=== PATIENT | female | born 1935 | race Caucasian/White ===

== ENCOUNTER → 2017-03-04 | Outpatient (CLI) | payer MEDICARE, BC ==
[2014-12-23 15:00] VITALS: BP 110/52
[~2017-03-04] MED LIST: ACET-1574 PO; ACET-704 PO; AMLO5TAB2 PO; CALC-244 PO; CALC300T42 PO; CARV6.252 PO; DIAZ5TAB4 PO; DOCU-109 PO; DOCU100C28 PO; ERGO500027 PO; ESTR42.53 VG; FLUO20CA8 PO; FLUO20TA11 PO; HYDR-2758 PO; LEVO250T25 PO; LOPE2CAP PO; METH750T2 PO; NITR50CA11 PO; ONDA4TAB12 PO; OXYB5TAB33 PO; TRIM100T13 PO; ZOLP10TA4 PO; ZONI100C PO
--- NOTE | 2017-03-04 12:59 | EKG ---
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
[2017-03-04 13:04] LABS: BASO % 1 % (0-3); EOS % 2 % (0-3); HEMATOCRIT 34.4 % (36.0-47.0); HEMOGLOBIN 11.1 g/dL (12.0-15.5); LYMPH # 1.7 x10^3/uL (1.0-4.8); LYMPH % 28 % (24-48); MEAN CORPUSCULAR HEMOGLOBIN 27 pg (25-35); MEAN CORPUSCULAR HGB CONC 32 g/dL (31-37); MEAN CORPUSCULAR VOLUME 82 fL (79-100); MONO % 7 % (0-9); NEUT % 64 % (31-73); PLATELET COUNT 225 x10^3/uL (140-400); RED BLOOD COUNT 4.19 x10^6/uL (3.50-5.40); RED CELL DISTRIBUTION WIDTH 15.4 % (11.5-14.5); WHITE BLOOD COUNT 6.3 x10^3/uL (4.0-11.0)
[2017-03-04 13:09] LABS: CALCIUM 8.9 mg/dL (8.5-10.1); CREATININE 1.3 mg/dL (0.6-1.0); GFR 39.5; POTASSIUM 4.6 mmol/L (3.5-5.1)
[2017-03-04 13:10] LABS: BILIRUBIN,URINE NEGATIVE (NEG); GLUCOSE,URINE NEGATIVE (NEG); NITRITE,URINE NEGATIVE (NEG); PH,URINE 6.5; PROTEIN,URINE NEGATIVE (NEG-TRACE)
[2017-03-04 13:14] LABS: INR 1.2 (0.8-1.1)
[2017-03-04 13:17] LABS: BACTERIA,URINE 0 /HPF (0-FEW); RBC,URINE 0 /HPF (0-2); SQUAMOUS EPITHELIAL CELL,UR MOD /LPF; WBC,URINE OCC /HPF (0-4)
--- NOTE | 2017-03-04 14:18 | RAD ---
2 views of the Chest 03/04/2017 1:46 PM Indication: PRE OP TOTAL HIP ARTHROPLASTY Comparison: Chest radiograph December 20, 2014 Findings: No new focal consolidation or infiltrate is seen. Mild left basilar scarring similar to prior exams. Heart size is top normal. Aortic calcification is noted. An acute osseous change is not seen. Irregularity of multiple right-sided ribs suggesting prior bony injury noted. Impression: No evidence of acute cardiopulmonary process or acute change from prior study.
== END | disposition home or self-care (01) ==
LOC: SURGPAT 10:05
PROVIDERS: ATTEND Orthopaedic Surgery
DX: Z01.818 Encounter for other preprocedural examination (principal)
CPT/HCPCS: 36415; 71020; 80048; 81001; 85027; 85610; 85651; 85730; 87641; 93005

== ENCOUNTER → 2017-05-03 | Outpatient (CLI) | payer MEDICARE, BC ==
[2017-03-15 11:00] VITALS: BP 105/52
[2017-05-03 13:03] LABS: BASO % 1 % (0-3); EOS % 2 % (0-3); HEMATOCRIT 32.2 % (36.0-47.0); HEMOGLOBIN 10.6 g/dL (12.0-15.5); LYMPH # 1.4 x10^3/uL (1.0-4.8); LYMPH % 22 % (24-48); MEAN CORPUSCULAR HEMOGLOBIN 27 pg (25-35); MEAN CORPUSCULAR HGB CONC 33 g/dL (31-37); MEAN CORPUSCULAR VOLUME 83 fL (79-100); MONO % 8 % (0-9); NEUT % 68 % (31-73); PLATELET COUNT 249 x10^3/uL (140-400); RED BLOOD COUNT 3.89 x10^6/uL (3.50-5.40); RED CELL DISTRIBUTION WIDTH 17.2 % (11.5-14.5); WHITE BLOOD COUNT 6.2 x10^3/uL (4.0-11.0)
== END | disposition home or self-care (01) ==
LOC: SPEC 12:14
PROVIDERS: ATTEND Family Medicine
DX: M25.561 Pain in right knee (principal); Z91.81 History of falling
CPT/HCPCS: 36415; 85025; 85651

== ENCOUNTER → 2017-05-03 | Outpatient (CLI) | payer MEDICARE, BC ==
[2017-03-15 11:00] VITALS: BP 105/52
[~2017-05-03] MED LIST changes: +LIDOCAINE 1% / SOD BICARB 8.4% 20 ML VIAL. IJ ONE
[2017-05-03 10:39] LABS: BF CLARITY CLOUDY; BF COLOR RED
--- NOTE | 2017-05-03 10:48 | RAD ---
Fluoroscopically guided right hip joint aspiration, 05/03/2017: History: Possible infection A right hip prosthesis is in place. Under local anesthesia, aseptic conditions and fluoroscopic guidance an 18-gauge needle was passed into the hip joint along the lateral margin of the neck of the femoral component of the prosthesis. Red serous appearing joint fluid was encountered. A total of approximately 20 cc of fluid was aspirated with a sample sent to the lab for appropriate studies. The needle was then removed and hemostasis obtained. 1.1 minutes of fluoroscopy time was utilized. A single fluoroscopic spot image was recorded. The patient tolerated the procedure well and left the department in good condition.
== END | disposition home or self-care (01) ==
LOC: RAD 06:55
PROVIDERS: ATTEND Orthopaedic Surgery
DX: M25.451 Effusion, right hip (principal)
CPT/HCPCS: 20605; 77002; 87071; 87075; 87205; 89050

== ENCOUNTER 2017-05-21 12:06 | Inpatient (IN) | payer MEDICARE, BC ==
[~2017-05-21] VITALS: Ht 152.4 cm; Wt 69.6 kg
[2017-05-21] VITALS (11 sets, daily range): BP systolic 81–99; BP diastolic 38–57
[~2017-05-21 12:06] MED LIST changes: +ACETAMINOPHEN 500 MG TABLET PO PRN; +CALC300T5 PO; +CELE200C PO; +CELECOXIB 200 MG CAPSULE. PO PRN; +FERR-26 PO; +HYDR-2766 PO; +HYDROmorphone 2 MG/ML VIAL IV PRN; +IV RINGERS,LACTATED 1000ML 1,000 ML IV SCH; -LIDOCAINE 1% / SOD BICARB 8.4% 20 ML VIAL. IJ ONE; +LIDOCAINE 1% PF 2 ML VIAL. ID PRN; +MORPHINE SULFATE 4 MG/ML DISP.SYRIN. IV PRN; +MORPHINE SULFATE 5 MG, KETOROLAC 30 MG, ROPIVacaine 0.5% PF 60 ML, EPINEPHrine 0.5 MG i... INT ART ONE; +MULT-503 PO; +ONDANSETRON PF 4 MG/2 ML VIAL. IV PRN; +PROCHLORPERAZINE 10 MG/2 ML VIAL. IV PRN; +RANI150T6 PO; +SENN1TAB21 PO; +TRAM50TA PO; +WARF-78 PO; +ZOLP5TAB PO
[2017-05-21] MEDS ORDERED: fentaNYL PF VIAL 250 MCG/5 ML VIAL ONE (13:27)
[2017-05-21] MEDS ORDERED: VECURONIUM BOLUS 10 MG VIAL. IV ONE (13:28)
[2017-05-21] MEDS ORDERED: DEXAMETHASONE SOD PHOS 20 MG/5 ML VIAL. ONE (13:37)
[2017-05-21] MEDS ORDERED: PROPOFOL 20 ML IV ONE (13:37)
[2017-05-21] MEDS ORDERED: LIDOCAINE 2% PF Vial for OR 5 ML VIAL. ONE (13:37)
[2017-05-21 13:38] LABS: INR 1.1 (0.8-1.1); PROTHROMBIN TIME PATIENT 13.7 SEC (11.7-14.0)
[2017-05-21] MEDS ORDERED: ONDANSETRON PF 4 MG/2 ML VIAL. ONE (13:38)
[2017-05-21] MEDS ORDERED: SEVOFLURANE > 120 MINUTES. IH ONE (13:38)
[2017-05-21] MEDS ORDERED: PHENYLEPHRINE in 0.9% NACL PF 1 MG/10 ML DISP.SYRIN. IV ONE ×2 (14:36→15:24)
[2017-05-21] MEDS ORDERED: GLYCOPYRROLATE 1 MG/5 ML VIAL. ONE (15:01)
[2017-05-21] MEDS ORDERED: NEOSTIGMINE METHYLSULFATE 5 MG/5 ML SYRINGE. ONE (15:02)
[2017-05-21] MEDS ORDERED: MORPHINE SULFATE 2 MG/ML DISP.SYRIN. IV PRN (16:15)
[2017-05-21] MEDS ORDERED: METHOCARBAMOL 750 MG TABLET PO PRN (16:15)
[2017-05-21] MEDS ORDERED: MORPHINE SULFATE 4 MG/ML DISP.SYRIN. IV PRN (16:15)
[2017-05-21] MEDS ORDERED: HYDROcodone/APAP 10/325 1 TAB TABLET PO PRN (16:15)
[2017-05-21] MEDS ORDERED: fentaNYL PF VIAL 100 MCG/2 ML VIAL IV PRN ×3 (16:15)
[2017-05-21] MEDS ORDERED: CALCIUM CARBONATE 500 MG TAB.CHEW PO PRN (16:15)
[2017-05-21] MEDS ORDERED: diphenhydrAMINE 50 MG/ML VIAL IV PRN (16:15)
[2017-05-21] MEDS ORDERED: ACETAMINOPHEN 325 MG TABLET. PO PRN (16:15)
[2017-05-21] MEDS ORDERED: HYDROcodone/APAP 7.5/325MG 1 TAB TABLET PO PRN (16:15)
[2017-05-21] MEDS ORDERED: PROCHLORPERAZINE 10 MG/2 ML VIAL. IV PRN (16:15)
[2017-05-21] MEDS ORDERED: traMADol 50 MG TABLET PO PRN ×3 (16:15)
[2017-05-21] MEDS ORDERED: LOPERAMIDE 2 MG CAPSULE PO PRN (16:15)
[2017-05-21] MEDS ORDERED: oxyCODONE/APAP 5/325 1 TAB TABLET PO PRN (16:15)
[2017-05-21] MEDS ORDERED: 0.9 % SODIUM CHLORIDE 10 ML DISP.SYRIN. IV PRN (16:15)
[2017-05-21] MEDS ORDERED: DEXTROSE 50% 25 GM / 50ML DISP.SYRIN. IV PRN (16:15)
[2017-05-21] MEDS ORDERED: ZOLPIDEM 5 MG TABLET. PO PRN ×2 (16:15)
[2017-05-21] MEDS: fentaNYL PF VIAL 100 MCG/2 ML VIAL IV PRN ×2 (16:25→16:37)
--- NOTE | 2017-05-21 17:10 | RAD ---
EXAM: Pelvis and right hip, 2 views. HISTORY: Arthroplasty. COMPARISON: 03/12/2017. FINDINGS: A frontal view of the pelvis and frontal view of the right hip are obtained. There is a right hip arthroplasty in expected position. There is a healed or healing proximal femoral fracture. There is surrounding soft tissue gas and a cervical drain due to recent surgery. There are laminectomy changes at the lumbosacral junction. IMPRESSION: Right hip arthroplasty in expected position.
[2017-05-21] MEDS ORDERED: WARFARIN 7.5 MG TABLET. PO ONE (19:00)
--- NOTE | 2017-05-21 20:44 | PDOC4 ---
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 endotracheal Estimated blood loss: 350 mL Complications: None Operative indications: Patient was scheduled for a previous acetabular revision for a painful total hip and on performance of her previous procedure was noted to have concern for infection underwent explantation and antibiotic spacer as well as a course of antibiotics and underwent negative aspirate preoperatively. I had gone over with her the rationale of reimplantation the higher risk of infection due to the previous infection she had experienced and the typical risks of a total hip arthroplasty including leg length discrepancy continued pain a mature wear or loosening instability nerve or blood vessel damage medical or other anesthetic competitions among others she verbalized understanding to these concerns and wants to proceed with surgical evaluation and treatment having given informed consent Operative text: Patient was identified procedure verified patient placed in the supine position on the operating table. After adequate amounts of general endotracheal anesthesia were administered she was placed decubitus position right side up using the Stulberg hip positioner and all bony prominences were well-padded and the right hip was prepped and draped in standard sterile fashion after timeout was performed patient procedure identified and verified. A curvilinear incision was then made over the previous incisional area dissection carried out down to the iliotibial band and gluteal fascia which were split in line with their fibers Charnley retractor was placed in the limited portion of the remaining hip capsule was divided in a T fashion. The antibiotic spacer head was split to allow removal and exposure of the spacer femoral stem. Osteotomes were used to remove the surrounding tissue constraining the stem and the stem was removed surrounding fibrous tissue was removed thoroughly with a back gouging curet and thorough irrigation carried out normal saline solution scar tissue was likewise excised from periphery of the acetabulum and successive size reaming was carried up to a size 59 where good bleeding bone was obtained and a size 60 hemispherical cluster hole cup was placed in proper version fixed with a single screw superiorly and an elevated 20 rim 40 mm anterior diameter liner was with elevated rim was placed posterior superior. Femur was then broached up to a size 10 with the anthology broaches from [employer] and trial fit with a standard offset +0 mm which retained her motion and duplicated leg length and offset. Trial femoral stem was then removed thorough irrigation carried out normal saline solution and an critical access hospitalology size 10 porous coated stem was placed in proper version a 40 mm cobalt chrome head with +0 mm sleeve was reduced and again found to have excellent stability with about 50 internal rotation at 90 hip flexion full motion in extension noted. Hip capsule was repaired external rotators were not repairable fascia was closed with Ethibond and #1 PDS strata fix suture subcutaneous closure in a layered fashion with buried Vicryl suture subcuticular closure with 3-0 Monocryl strata fix and a troy drain was placed. Patient was extubated transferred to postop holding in stable condition having tolerated procedure well. Ashly santillan was present for the positioning prepping draping and assisted with retraction and skin closure BLAYNE ARCEO MD May 21, 2017 20:41
[2017-05-21] MEDS ORDERED: TRIMETHOPRIM 100 MG TABLET PO SCH (21:00)
[2017-05-21] MEDS ORDERED: CELECOXIB 200 MG CAPSULE. PO SCH (21:00)
[2017-05-21] MEDS ORDERED: FERROUS SULFATE 325 MG TABLET. PO SCH (21:00)
[2017-05-21] MEDS: DOCUSATE SODIUM 100 MG CAPSULE. PO SCH (21:42)
[2017-05-21] MEDS: CARVEDILOL 6.25 MG TABLET. PO SCH (21:47)
[2017-05-21] MEDS: ZONISAMIDE 100 MG CAPSULE. PO SCH (21:50)
[2017-05-21] MEDS: CELECOXIB 200 MG CAPSULE. PO SCH (21:50)
[2017-05-22] VITALS (14 sets, daily range): BP systolic 88–119; BP diastolic 38–56
[2017-05-22] MEDS: IV DEXTROSE 5 %-0.45 % NACL 1,000 ML IV SCH ×3 (01:13→12:00)
[2017-05-22] MEDS ORDERED: MAGNESIUM HYDROXIDE 2,400 MG/30 ML ORAL.SUSP. PO PRN (06:00)
[2017-05-22 07:05] LABS: INR 1.3 (0.8-1.1); PROTHROMBIN TIME PATIENT 15.4 SEC (11.7-14.0)
[2017-05-22] MEDS ORDERED: SENNOSIDES/DOCUSATE 8.6/50MG TABLET. PO SCH (09:00)
[2017-05-22] MEDS: SENNOSIDES/DOCUSATE 8.6/50MG TABLET. PO SCH (09:26)
[2017-05-22] MEDS: MULTIVITAMIN with MINERAL TABLET. PO SCH (09:26)
[2017-05-22] MEDS: CELECOXIB 200 MG CAPSULE. PO SCH ×2 (09:26→21:01)
[2017-05-22] MEDS: FLUoxetine HCL 20 MG CAPSULE PO SCH (09:26)
[2017-05-22] MEDS: FERROUS SULFATE 325 MG TABLET. PO SCH ×2 (09:27→17:11)
[2017-05-22] MEDS: CARVEDILOL 6.25 MG TABLET. PO SCH ×2 (09:27→17:00)
[2017-05-22] MEDS: DOCUSATE SODIUM 100 MG CAPSULE. PO SCH ×2 (09:27→21:01)
[2017-05-22 15:29] LABS: CALCIUM 8.1 mg/dL (8.5-10.1); CREATININE 0.9 mg/dL (0.6-1.0); GFR 60.4; POTASSIUM 4.3 mmol/L (3.5-5.1)
[2017-05-22 15:42] LABS: BASO % 0 % (0-3); EOS % 0 % (0-3); LYMPH # 1.2 x10^3/uL (1.0-4.8); LYMPH % 13 % (24-48); MEAN CORPUSCULAR HEMOGLOBIN 28 pg (25-35); MEAN CORPUSCULAR HGB CONC 33 g/dL (31-37); MEAN CORPUSCULAR VOLUME 85 fL (79-100); MONO % 7 % (0-9); NEUT % 79 % (31-73); PLATELET COUNT 163 x10^3/uL (140-400); RED CELL DISTRIBUTION WIDTH 17.2 % (11.5-14.5); WHITE BLOOD COUNT 9.6 x10^3/uL (4.0-11.0)
[2017-05-22 15:48] LABS: HEMATOCRIT 19.6 % (36.0-47.0); HEMOGLOBIN 6.4 g/dL (12.0-15.5)
[2017-05-22] MEDS ORDERED: BISACODYL 10 MG SUPP.RECT. PR PRN (16:00)
[2017-05-22] MEDS ORDERED: ESTRADIOL 0.01% VAGINAL CREAM 42.5GM TUBE. VG SCH (16:00)
[2017-05-22] MEDS ORDERED: WARFARIN 5 MG TABLET. PO ONE (16:00)
--- NOTE | 2017-05-22 17:51 | PDOC ---
PROGRESS NOTES Subjective Subjective Problems overnight: Hip felt somewhat better had postsurgical soreness pain otherwise well-controlled feels tired Objective Vital Signs Vital Signs Date Time Temp Pulse Resp B/P (MAP) Pulse Ox O2 Delivery O2 Flow Rate FiO2 05/22/17 17:00 84 94/44 05/22/17 14:58 98.1 97 Nasal Cannula 2.0 98.1 05/22/17 13:36 16 Physical Exam Leg lengths equal good stability intact distal neurovascular status Labs Laboratory Tests Test 05/21/17 13:00 05/22/17 06:20 05/22/17 15:30 Prothrombin Time 13.7 SEC (11.7-14.0) 15.4 SEC (11.7-14.0) Prothromb Time International Ratio 1.1 (0.8-1.1) 1.3 (0.8-1.1) Sodium Level 138 mmol/L (136-145) Potassium Level 4.3 mmol/L (3.5-5.1) Chloride Level 105 mmol/L (98-107) Carbon Dioxide Level 27 mmol/L (21-32) Anion Gap 6 (6-14) Blood Urea Nitrogen 35 mg/dL (7-20) Creatinine 0.9 mg/dL (0.6-1.0) Estimated GFR (Cockcroft-Gault) 60.4 Glucose Level 128 mg/dL (70-99) Calcium Level 8.1 mg/dL (8.5-10.1) White Blood Count 9.6 x10^3/uL (4.0-11.0) Red Blood Count 2.30 x10^6/uL (3.50-5.40) Hemoglobin 6.4 g/dL (12.0-15.5) Hematocrit 19.6 % (36.0-47.0) Mean Corpuscular Volume 85 fL (79-100) Mean Corpuscular Hemoglobin 28 pg (25-35) Mean Corpuscular Hemoglobin Concent 33 g/dL (31-37) Red Cell Distribution Width 17.2 % (11.5-14.5) Platelet Count 163 x10^3/uL (140-400) Neutrophils (%) (Auto) 79 % (31-73) Lymphocytes (%) (Auto) 13 % (24-48) Monocytes (%) (Auto) 7 % (0-9) Eosinophils (%) (Auto) 0 % (0-3) Basophils (%) (Auto) 0 % (0-3) Neutrophils # (Auto) 7.6 x10^3uL (1.8-7.7) Lymphocytes # (Auto) 1.2 x10^3/uL (1.0-4.8) Monocytes # (Auto) 0.7 x10^3/uL (0.0-1.1) Eosinophils # (Auto) 0.0 x10^3/uL (0.0-0.7) Basophils # (Auto) 0.0 x10^3/uL (0.0-0.2) Laboratory Tests Test 05/22/17 06:20 05/22/17 15:30 Prothrombin Time 15.4 SEC (11.7-14.0) Prothromb Time International Ratio 1.3 (0.8-1.1) Sodium Level 138 mmol/L (136-145) Potassium Level 4.3 mmol/L (3.5-5.1) Chloride Level 105 mmol/L (98-107) Carbon Dioxide Level 27 mmol/L (21-32) Anion Gap 6 (6-14) Blood Urea Nitrogen 35 mg/dL (7-20) Creatinine 0.9 mg/dL (0.6-1.0) Estimated GFR (Cockcroft-Gault) 60.4 Glucose Level 128 mg/dL (70-99) Calcium Level 8.1 mg/dL (8.5-10.1) White Blood Count 9.6 x10^3/uL (4.0-11.0) Red Blood Count 2.30 x10^6/uL (3.50-5.40) Hemoglobin 6.4 g/dL (12.0-15.5) Hematocrit 19.6 % (36.0-47.0) Mean Corpuscular Volume 85 fL (79-100) Mean Corpuscular Hemoglobin 28 pg (25-35) Mean Corpuscular Hemoglobin Concent 33 g/dL (31-37) Red Cell Distribution Width 17.2 % (11.5-14.5) Platelet Count 163 x10^3/uL (140-400) Neutrophils (%) (Auto) 79 % (31-73) Lymphocytes (%) (Auto) 13 % (24-48) Monocytes (%) (Auto) 7 % (0-9) Eosinophils (%) (Auto) 0 % (0-3) Basophils (%) (Auto) 0 % (0-3) Neutrophils # (Auto) 7.6 x10^3uL (1.8-7.7) Lymphocytes # (Auto) 1.2 x10^3/uL (1.0-4.8) Monocytes # (Auto) 0.7 x10^3/uL (0.0-1.1) Eosinophils # (Auto) 0.0 x10^3/uL (0.0-0.7) Basophils # (Auto) 0.0 x10^3/uL (0.0-0.2) Assessment Assessment POD# [1], S/P [reimplantation total hip] Problems: Plan Plan of Care Continue mobilize with physical therapy Transfused 2 units packed red blood cells for hemoglobin 6.6 symptomatic check in a.m. Coumadin per anticoagulation clinic and pharmacy Weightbearing as tolerated with standard total hip precautions BLAYNE ARCEO MD May 22, 2017 17:51
[2017-05-22] MEDS: ZONISAMIDE 100 MG CAPSULE. PO SCH (21:01)
[2017-05-22] MEDS: oxyCODONE/APAP 7.5/325 1 TAB TABLET PO PRN (21:07)
[2017-05-23] VITALS (8 sets, daily range): BP systolic 103–130; BP diastolic 46–63
[2017-05-23] MEDS: IV DEXTROSE 5 %-0.45 % NACL 1,000 ML IV SCH ×3 (01:00→21:00)
[2017-05-23 03:12] LABS: HEMATOCRIT 26.8 % (36.0-47.0); HEMOGLOBIN 8.9 g/dL (12.0-15.5)
[2017-05-23 03:19] LABS: INR 2.6 (0.8-1.1); PROTHROMBIN TIME PATIENT 26.6 SEC (11.7-14.0)
[2017-05-23] MEDS: oxyCODONE/APAP 7.5/325 1 TAB TABLET PO PRN (06:31)
[2017-05-23] MEDS: DOCUSATE SODIUM 100 MG CAPSULE. PO SCH ×2 (09:53→21:02)
[2017-05-23] MEDS: SENNOSIDES/DOCUSATE 8.6/50MG TABLET. PO SCH (09:53)
[2017-05-23] MEDS: FERROUS SULFATE 325 MG TABLET. PO SCH ×2 (09:53→18:20)
[2017-05-23] MEDS: FLUoxetine HCL 20 MG CAPSULE PO SCH (09:53)
[2017-05-23] MEDS: CARVEDILOL 6.25 MG TABLET. PO SCH ×2 (09:53→18:20)
[2017-05-23] MEDS: MULTIVITAMIN with MINERAL TABLET. PO SCH (09:54)
[2017-05-23] MEDS: CELECOXIB 200 MG CAPSULE. PO SCH ×2 (09:54→21:02)
--- NOTE | 2017-05-23 11:29 | PDOC ---
ORTHO PROGRESS NOTES Subjective Patient is doing better today. Hemoglobin was 6.4 yesterday and transfuse 2 units. Today it is 8.9. She feels much better and anticipates getting up with therapy today. Pain controlled. Post-op Day: 2 (Right hip revision of total hip arthroplasty) Vitals Vital Signs Date Time Temp Pulse Resp B/P (MAP) Pulse Ox O2 Delivery O2 Flow Rate FiO2 05/23/17 09:53 101 136/70 05/23/17 08:00 Room Air 05/23/17 07:26 16 05/23/17 07:00 98.1 93 98.1 05/22/17 22:46 2.0 Labs Laboratory Tests Test 05/21/17 13:00 05/22/17 06:20 05/22/17 15:30 05/23/17 03:00 Prothrombin Time 13.7 SEC (11.7-14.0) 15.4 SEC (11.7-14.0) Prothromb Time International Ratio 1.1 (0.8-1.1) 1.3 (0.8-1.1) Sodium Level 138 mmol/L (136-145) Potassium Level 4.3 mmol/L (3.5-5.1) Chloride Level 105 mmol/L (98-107) Carbon Dioxide Level 27 mmol/L (21-32) Anion Gap 6 (6-14) Blood Urea Nitrogen 35 mg/dL (7-20) Creatinine 0.9 mg/dL (0.6-1.0) Estimated GFR (Cockcroft-Gault) 60.4 Glucose Level 128 mg/dL (70-99) Calcium Level 8.1 mg/dL (8.5-10.1) White Blood Count 9.6 x10^3/uL (4.0-11.0) Red Blood Count 2.30 x10^6/uL (3.50-5.40) Hemoglobin 6.4 g/dL (12.0-15.5) 8.9 g/dL (12.0-15.5) Hematocrit 19.6 % (36.0-47.0) 26.8 % (36.0-47.0) Mean Corpuscular Volume 85 fL (79-100) Mean Corpuscular Hemoglobin 28 pg (25-35) Mean Corpuscular Hemoglobin Concent 33 g/dL (31-37) 33 g/dL (31-37) Red Cell Distribution Width 17.2 % (11.5-14.5) Platelet Count 163 x10^3/uL (140-400) Neutrophils (%) (Auto) 79 % (31-73) Lymphocytes (%) (Auto) 13 % (24-48) Monocytes (%) (Auto) 7 % (0-9) Eosinophils (%) (Auto) 0 % (0-3) Basophils (%) (Auto) 0 % (0-3) Neutrophils # (Auto) 7.6 x10^3uL (1.8-7.7) Lymphocytes # (Auto) 1.2 x10^3/uL (1.0-4.8) Monocytes # (Auto) 0.7 x10^3/uL (0.0-1.1) Eosinophils # (Auto) 0.0 x10^3/uL (0.0-0.7) Basophils # (Auto) 0.0 x10^3/uL (0.0-0.2) Test 05/23/17 03:05 Prothrombin Time 26.6 SEC (11.7-14.0) Prothromb Time International Ratio 2.6 (0.8-1.1) Laboratory Tests Test 05/22/17 15:30 05/23/17 03:00 05/23/17 03:05 White Blood Count 9.6 x10^3/uL (4.0-11.0) Red Blood Count 2.30 x10^6/uL (3.50-5.40) Hemoglobin 6.4 g/dL (12.0-15.5) 8.9 g/dL (12.0-15.5) Hematocrit 19.6 % (36.0-47.0) 26.8 % (36.0-47.0) Mean Corpuscular Volume 85 fL (79-100) Mean Corpuscular Hemoglobin 28 pg (25-35) Mean Corpuscular Hemoglobin Concent 33 g/dL (31-37) 33 g/dL (31-37) Red Cell Distribution Width 17.2 % (11.5-14.5) Platelet Count 163 x10^3/uL (140-400) Neutrophils (%) (Auto) 79 % (31-73) Lymphocytes (%) (Auto) 13 % (24-48) Monocytes (%) (Auto) 7 % (0-9) Eosinophils (%) (Auto) 0 % (0-3) Basophils (%) (Auto) 0 % (0-3) Neutrophils # (Auto) 7.6 x10^3uL (1.8-7.7) Lymphocytes # (Auto) 1.2 x10^3/uL (1.0-4.8) Monocytes # (Auto) 0.7 x10^3/uL (0.0-1.1) Eosinophils # (Auto) 0.0 x10^3/uL (0.0-0.7) Basophils # (Auto) 0.0 x10^3/uL (0.0-0.2) Prothrombin Time 26.6 SEC (11.7-14.0) Prothromb Time International Ratio 2.6 (0.8-1.1) Notes Patient is awake alert sitting up in bed. Breathing unlabored, no acute distress. Incision is covered with dressing, dressing is intact without drainage. 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
[2017-05-23] MEDS: HYDROcodone/APAP 10/325 1 TAB TABLET PO PRN (20:17)
[2017-05-23] MEDS: ZONISAMIDE 100 MG CAPSULE. PO SCH (21:03)
[2017-05-24] MEDS: HYDROcodone/APAP 10/325 1 TAB TABLET PO PRN ×3 (02:38→12:46)
[2017-05-24 03:27] VITALS: BP 125/60
[2017-05-24 06:15] LABS: HEMATOCRIT 24.4 % (36.0-47.0); HEMOGLOBIN 8.4 g/dL (12.0-15.5)
[2017-05-24 06:29] LABS: PROTHROMBIN TIME PATIENT 21.1 SEC (11.7-14.0)
[2017-05-24 07:00] VITALS: BP 147/55
[2017-05-24] MEDS: IV DEXTROSE 5 %-0.45 % NACL 1,000 ML IV SCH (07:16)
[2017-05-24] MEDS: CARVEDILOL 6.25 MG TABLET. PO SCH (09:25)
[2017-05-24] MEDS: CELECOXIB 200 MG CAPSULE. PO SCH (09:25)
[2017-05-24] MEDS: FERROUS SULFATE 325 MG TABLET. PO SCH (09:25)
[2017-05-24] MEDS: DOCUSATE SODIUM 100 MG CAPSULE. PO SCH (09:25)
[2017-05-24] MEDS: MULTIVITAMIN with MINERAL TABLET. PO SCH (09:25)
[2017-05-24] MEDS: FLUoxetine HCL 20 MG CAPSULE PO SCH (09:25)
[2017-05-24] MEDS: SENNOSIDES/DOCUSATE 8.6/50MG TABLET. PO SCH (09:31)
[2017-05-24 11:00] VITALS: BP 111/57
[2017-05-24] MEDS ORDERED: WARFARIN 3 MG TABLET. PO ONE (16:00)
== END 2017-05-24 13:05 | DRG 467 ==
LOC: OPSVCIP 12:06 → 4 NORTH 18:18
PROVIDERS: ADMIT Orthopaedic Surgery; ATTEND Orthopaedic Surgery
PROC: 0SP908Z Removal of Spacer from Right Hip Joint, Open Approach (ICD-10-PCS; 2017-05-21)
PROC: 0SW90JZ Revision of Synthetic Substitute in Right Hip Joint, Open Approach (ICD-10-PCS; principal; 2017-05-21 14:15)
PROC: 30233N1 Transfusion of Nonautologous Red Blood Cells into Peripheral Vein, Percutaneous Approach (ICD-10-PCS; 2017-05-22)
DX: Z47.32 Aftercare following explantation of hip joint prosthesis (principal); D62 Acute posthemorrhagic anemia; R56.9 Unspecified convulsions; N39.0 Urinary tract infection, site not specified; D49.6 Neoplasm of unspecified behavior of brain; I10 Essential (primary) hypertension; Z96.641 Presence of right artificial hip joint; F32.9 Major depressive disorder, single episode, unspecified; M79.7 Fibromyalgia; G47.00 Insomnia, unspecified; H81.09 Meniere's disease, unspecified ear
CPT/HCPCS: 36415; 72170; 80048; 85014; 85018; 85025; 85610; 86850; 86900; 86901; 86920; J0171; J0690; J0780; J1100; J1170; J1885; J2270; J2370; J2405; J2704; J2710; J2795; J3010; J3490; J7030; J7120; P9016; 97110; 97530; 97535; J2001

== ENCOUNTER 2017-07-17 10:52 | Emergency (ER) | payer MEDICARE, BC ==
[~2017-07-17] VITALS: Ht 152.4 cm; Wt 61.7 kg
[~2017-07-17 10:52] MED LIST changes: -ACETAMINOPHEN 500 MG TABLET PO PRN; -CELECOXIB 200 MG CAPSULE. PO PRN; -HYDROmorphone 2 MG/ML VIAL IV PRN; -IV RINGERS,LACTATED 1000ML 1,000 ML IV SCH; -LIDOCAINE 1% PF 2 ML VIAL. ID PRN; -MORPHINE SULFATE 4 MG/ML DISP.SYRIN. IV PRN; -MORPHINE SULFATE 5 MG, KETOROLAC 30 MG, ROPIVacaine 0.5% PF 60 ML, EPINEPHrine 0.5 MG i... INT ART ONE; -ONDANSETRON PF 4 MG/2 ML VIAL. IV PRN; -PROCHLORPERAZINE 10 MG/2 ML VIAL. IV PRN
--- NOTE | 2017-07-17 11:00 | PHYS DOC ---
Past Medical History Past Medical History: Depression, Fibromyalgia, Hypertension, Other Additional Past Medical Histor: brain tumor; meneires disease Past Surgical History: Appendectomy, Cholecystectomy, Hip Replacement, Hysterectomy, Knee Replacement, Tonsillectomy, Other Additional Past Surgical Histo: rotator cuff x3; brain tumor removal 2013; breast tumor; Alcohol Use: None Drug Use: None Adult General Chief Complaint Chief Complaint: head laceration HPI HPI Patient is a 81 year old female who presents with a fall and laceration posterior aspect of her scalp. She states that her leg just gave out and it happened to be the hip that she had replaced here recently and she fell backwards hitting her head on either wheelchair or a Ricks's rack condition was next the kitchen when this happened at [facility]. She denies any loss of consciousness. She denies any neck pain. She is on Coumadin and states she had a history of her brain surgery status post meningioma resection. She denies any confusion, weakness or other concerns this time. She arrived with c-collar in place. Review of Systems Review of Systems Constitutional: Denies fever or chills [] Eyes: Denies change in visual acuity, redness, or eye pain [] HENT: Denies nasal congestion or sore throat [] Respiratory: Denies cough or shortness of breath [] Cardiovascular: No additional information not addressed in HPI [] GI: Denies abdominal pain, nausea, vomiting, bloody stools or diarrhea [] : Denies dysuria or hematuria [] Musculoskeletal: Denies back pain or joint pain [] Integument: Denies rash or skin lesions [] Neurologic: Denies headache, focal weakness or sensory changes [] Endocrine: Denies polyuria or polydipsia [] All other systems were reviewed and found to be within normal limits, except as documented in this note. Current Medications Current Medications Current Medications Medications (Trade) Dose Ordered Sig/Slime Start Time Stop Time Status Last Admin Dose Admin Acetaminophen (Tylenol) 1,000 mg 1X ONCE 07/17/17 11:15 07/17/17 11:16 DC 07/17/17 11:17 1,000 MG Lidocaine/ Epinephrine (Let Topical) 3 ml 1X ONCE 07/17/17 12:15 07/17/17 12:16 DC 07/17/17 12:22 3 ML Allergies Allergies Allergies Coded Allergies Type Severity Reaction Last Updated Verified meperidine Adverse Reaction Intermediate 9/26/17 Yes aspirin Adverse Reaction Mild Nausea and Vomiting 05/21/17 Yes Physical Exam Physical Exam Constitutional: Well developed, well nourished, no acute distress, non-toxic appearance. [] HENT: Normocephalic, atraumatic, bilateral external ears normal, oropharynx moist, no oral exudates, nose normal. [] Eyes: PERRLA, EOMI, conjunctiva normal, no discharge. [] Neck: Normal range of motion, no tenderness, supple, no stridor. C-collar in place Cardiovascular:Heart rate regular rhythm, no murmur [] Lungs & Thorax: Bilateral breath sounds clear to auscultation [] Abdomen: Bowel sounds normal, soft, no tenderness, no masses, no pulsatile masses. [] Skin: Warm, dry, no erythema, no rash. 1 cm laceration the right posterior scalp with surrounding abrasion and cephalhematoma noted Back: No tenderness, no CVA tenderness. [] Extremities: No tenderness, no cyanosis, no clubbing, ROM intact, no edema. [] Neurologic: Alert and oriented X 3, normal motor function, normal sensory function, no focal deficits noted. [] Psychologic: Affect normal, judgement normal, mood normal. [] Current Patient Data Vital Signs Vital Signs Date Time Temp Pulse Resp B/P (MAP) Pulse Ox O2 Delivery O2 Flow Rate FiO2 07/17/17 11:31 60 20 98 07/17/17 10:53 98.3 172/77 (108) Room Air 98.3 EKG EKG [] Radiology/Procedures Radiology/Procedures [facility] [address] [place], [place] [id number] IMAGING REPORT Signed PATIENT: TAWANDA MACHADO ACCOUNT: [id number] : 1935 LOCATION: ER AGE: 81 SEX: F EXAM STATUS: PRE ER ORD. PHYSICIAN: SRIKANTH ROSEN MD REASON: laceration PROCEDURE: CT HEAD AND CERVICAL SPINE WO PQRS Compliance Statement: One or more of the following individualized dose reduction techniques were utilized for this examination: 1. Automated exposure control 2. Adjustment of the mA and/or kV according to patient size 3. Use of iterative reconstruction technique CT HEAD AND CERVICAL SPINE WITHOUT CONTRAST History: mechanical fall neck pain laceration to head Comparison: CT head without contrast December 20, 2014. CT cervical spine without contrast August 26, 2013. Procedure: Axial images are obtained of the head from the skull base through the vertex without IV contrast. Noncontrast helical CT of the cervical spine was performed. Axial, sagittal, and coronal reconstructions were obtained. Findings: The ventricles and sulci are prominent, consistent with age-related cerebral atrophy. There is scattered periventricular white matter hypoattenuation. This is a nonspecific finding but is commonly due to chronic small vessel ischemic disease in a patient of this age. Right frontal lobe encephalomalacia is unchanged. No mass-effect, midline shift, hemorrhage or obvious acute infarction is identified. Basilar cisterns are patent. Bone windows demonstrate no significant calvarial abnormality. There is old right frontotemporal craniotomy. Mucosal thickening of the left sphenoid sinus. Mastoid air cells are well aerated. There is no evidence of acute fracture or acute malalignment. Fusion of the C3/C4 disc space is redemonstrated. There is severe disc space narrowing of C4/C5, C5/C6, and C6/C7. Hypertrophic facet and uncovertebral joints. There is stable grade 1 anterolisthesis of C2 on C3. Alignment is otherwise maintained. Mild retroodontoid soft tissue thickening. There is a 13 mm hypodense right thyroid nodule. Moderate bilateral carotid bulb calcifications. The visualized lung apices are clear. IMPRESSION: 1. No acute intracranial abnormality. 2. Unchanged right frontal lobe encephalomalacia. 3. No acute fracture of the cervical spine. 4. Right thyroid nodule. Consider outpatient thyroid ultrasound. Electronically signed by: Bryant Cronin MD (07/17/2017 11:56 AM) [id number] DICTATED and SIGNED BY: BRYANT CRONIN MD DATE: 07/17/17 1148 CC: SRIKANTH ROSEN MD; JAG ARREDONDO MD ~ Impressions: Closed head injury Scalp laceration Course & Med Decision Making Course & Med Decision Making Pertinent Labs and Imaging studies reviewed. (See chart for details) Scalp laceration was repaired with 2 kayleigh she'll need to have these removed in 7-9 days. Return precautions given. CT of her head and neck did not show any acute abnormality's. She is on Coumadin she was watched for close to 2 hours and had no additional bleeding or other concerns. Dragon Disclaimer Dragon Disclaimer This electronic medical record was generated, in whole or in part, using a voice recognition dictation system. Laceration Repair Lac Repair Indication: Scalp laceration Procedure: The patient was placed in the appropriate position and anesthesia around the posterior right scalp with left. The area was then cleansed with sterile saline. The laceration was and closed with 2 kayleigh. Total repaired wound length: One centimeter. The patient tolerated the procedure well. Complications: No complications noted. Departure Departure Impression: Primary Impression: Scalp laceration Disposition: HOME, SELF-CARE Condition: STABLE Referrals: JAG ARREDONDO MD (PCP) Patient Instructions: Laceration Care, Adult Additional Instructions: The CAT scan of your head and neck did not show anything broken. The laceration on the back of your head was repaired with 2 kayleigh. These will need to be removed in 7-9 days from now. Return ER if you become confused, have severe headache, become lightheaded dizzy, you notice increasing pain or swelling or redness around the area or have other concerns. SRIKANTH ROSEN MD Jul 17, 2017 11:00
[2017-07-17] MEDS ORDERED: ACETAMINOPHEN 500 MG TABLET PO ONE (11:15)
--- NOTE | 2017-07-17 11:59 | RAD ---
PQRS Compliance Statement: One or more of the following individualized dose reduction techniques were utilized for this examination: 1. Automated exposure control 2. Adjustment of the mA and/or kV according to patient size 3. Use of iterative reconstruction technique CT HEAD AND CERVICAL SPINE WITHOUT CONTRAST History: mechanical fall neck pain laceration to head Comparison: CT head without contrast December 20, 2014. CT cervical spine without contrast August 26, 2013. Procedure: Axial images are obtained of the head from the skull base through the vertex without IV contrast. Noncontrast helical CT of the cervical spine was performed. Axial, sagittal, and coronal reconstructions were obtained. Findings: The ventricles and sulci are prominent, consistent with age-related cerebral atrophy. There is scattered periventricular white matter hypoattenuation. This is a nonspecific finding but is commonly due to chronic small vessel ischemic disease in a patient of this age. Right frontal lobe encephalomalacia is unchanged. No mass-effect, midline shift, hemorrhage or obvious acute infarction is identified. Basilar cisterns are patent. Bone windows demonstrate no significant calvarial abnormality. There is old right frontotemporal craniotomy. Mucosal thickening of the left sphenoid sinus. Mastoid air cells are well aerated. There is no evidence of acute fracture or acute malalignment. Fusion of the C3/C4 disc space is redemonstrated. There is severe disc space narrowing of C4/C5, C5/C6, and C6/C7. Hypertrophic facet and uncovertebral joints. There is stable grade 1 anterolisthesis of C2 on C3. Alignment is otherwise maintained. Mild retroodontoid soft tissue thickening. There is a 13 mm hypodense right thyroid nodule. Moderate bilateral carotid bulb calcifications. The visualized lung apices are clear. IMPRESSION: 1. No acute intracranial abnormality. 2. Unchanged right frontal lobe encephalomalacia. 3. No acute fracture of the cervical spine. 4. Right thyroid nodule. Consider outpatient thyroid ultrasound. Electronically signed by: Bryant Cronin MD (07/17/2017 11:56 AM) [id number]
[2017-07-17] MEDS ORDERED: LIDOCAINE/EPI/TETRACAINE TOPICAL GEL 3 ML. TP ONE (12:15)
[2017-07-17 13:24] VITALS: BP 141/63
== END 2017-07-17 13:14 | disposition home or self-care (01) ==
LOC: ER 10:52
DX: S01.01XA Laceration without foreign body of scalp, initial encounter (principal); F32.9 Major depressive disorder, single episode, unspecified; M79.7 Fibromyalgia; I10 Essential (primary) hypertension; G93.89 Other specified disorders of brain; Z90.49 Acquired absence of other specified parts of digestive tract; Z90.710 Acquired absence of both cervix and uterus; Z96.659 Presence of unspecified artificial knee joint; Z96.649 Presence of unspecified artificial hip joint; Z79.01 Long term (current) use of anticoagulants; Z88.6 Allergy status to analgesic agent; Z88.8 Allergy status to other drugs, medicaments and biological substances; W01.198A Fall on same level from slipping, tripping and stumbling with subsequent striking against other object, initial encounter; Y93.89 Activity, other specified; Y92.89 Other specified places as the place of occurrence of the external cause; Y99.8 Other external cause status
CPT/HCPCS: 12001; 70450; 72125; 99284-25

== ENCOUNTER 2017-09-03 11:44 | Emergency (ER) | payer MEDICARE, BC | END 2017-09-03 13:47 | disposition home or self-care (01) | LOC: ER 11:44 | DX: S61.451A Open bite of right hand, initial encounter (principal); F32.9 Major depressive disorder, single episode, unspecified; I10 Essential (primary) hypertension; M79.7 Fibromyalgia; Z90.49 Acquired absence of other specified parts of digestive tract; Z90.710 Acquired absence of both cervix and uterus; Z96.659 Presence of unspecified artificial knee joint; Z88.6 Allergy status to analgesic agent; Z88.8 Allergy status to other drugs, medicaments and biological substances; W55.01XA Bitten by cat, initial encounter; Y93.89 Activity, other specified; Y92.89 Other specified places as the place of occurrence of the external cause; Y99.8 Other external cause status | CPT/HCPCS: 99283 ==

== ENCOUNTER 2017-10-26 12:00 | Inpatient (IN) | payer MEDICARE, BC ==
[2017-10-26] MEDS ORDERED: MORPHINE SULFATE 2 MG/ML DISP.SYRIN. IV (12:15)
[2017-10-26] MEDS ORDERED: ONDANSETRON PF 4 MG/2 ML VIAL. IV (12:15)
[2017-10-26 12:48] LABS: ADD MAN DIFF? NO
[2017-10-26 12:54] LABS: BASO % 1 % (0-3); EOS # 0.1 x10^3/uL (0.0-0.7); EOS % 1 % (0-3); HEMOGLOBIN 11.9 g/dL (12.0-15.5); LYMPH # 1.6 x10^3/uL (1.0-4.8); LYMPH % 26 % (24-48); MEAN CORPUSCULAR HEMOGLOBIN 28 pg (25-35); MEAN CORPUSCULAR HGB CONC 33 g/dL (31-37); MEAN CORPUSCULAR VOLUME 84 fL (79-100); MONO # 0.5 x10^3/uL (0.0-1.1); MONO % 9 % (0-9); NEUT # 3.7 x10^3uL (1.8-7.7); NEUT % 63 % (31-73); PLATELET COUNT 169 x10^3/uL (140-400); RED BLOOD COUNT 4.28 x10^6/uL (3.50-5.40); WHITE BLOOD COUNT 5.9 x10^3/uL (4.0-11.0)
[2017-10-26 13:03] LABS: ANION GAP 5 (6-14); BLOOD UREA NITROGEN 29 mg/dL (7-20); BUN/CREATININE RATIO 26 (6-20); CALCIUM 8.6 mg/dL (8.5-10.1); CARBON DIOXIDE 29 mmol/L (21-32); CHLORIDE 110 mmol/L (98-107); CREATININE 1.1 mg/dL (0.6-1.0); GFR 47.8; GLUCOSE 95 mg/dL (70-99); INR 1.1 (0.8-1.1); POTASSIUM 4.2 mmol/L (3.5-5.1); PROTHROMBIN TIME PATIENT 13.5 SEC (11.7-14.0); SODIUM 144 mmol/L (136-145)
[2017-10-26 13:09] LABS: ALBUMIN 3.1 g/dL (3.4-5.0); ALK PHOS 113 U/L (46-116); ALT (SGPT) 18 U/L (14-59); AST (SGOT) 16 U/L (15-37); TOTAL BILIRUBIN 0.3 mg/dL (0.2-1.0); TOTAL PROTEIN 6.3 g/dL (6.4-8.2)
[2017-10-26] MEDS ORDERED: LOPERAMIDE 2 MG CAPSULE PO (16:30)
[2017-10-26] MEDS ORDERED: SENNOSIDES/DOCUSATE 8.6/50MG TABLET. PO (16:30)
[2017-10-26] MEDS ORDERED: POLYETHYLENE GLYCOL 3350 17 GM PACKET. PO (16:30)
[2017-10-26] MEDS ORDERED: traZODone 50 MG TABLET. PO (16:30)
[2017-10-26] MEDS ORDERED: HYDROcodone/APAP 5/325MG 1 TAB TABLET PO (16:30)
[2017-10-26] MEDS ORDERED: CALCIUM CARBONATE 500 MG TAB.CHEW PO (17:00)
[2017-10-26] MEDS: WARFARIN 2 MG TABLET. PO (17:58)
[2017-10-26] MEDS: CARVEDILOL 6.25 MG TABLET. PO (17:58)
[2017-10-26] MEDS: FERROUS SULFATE 325 MG TABLET. PO (20:30)
[2017-10-26] MEDS: CELECOXIB 200 MG CAPSULE. PO (20:30)
[2017-10-26] MEDS: HYDROcodone/APAP 10/325 1 TAB TABLET PO (20:30)
[2017-10-26] MEDS: DOCUSATE SODIUM 100 MG CAPSULE. PO (20:30)
[2017-10-26] MEDS: ZONISAMIDE 100 MG CAPSULE. PO (20:30)
[2017-10-26] MEDS: FAMOTIDINE 20 MG TABLET. PO (20:30)
[2017-10-26] MEDS: METHOCARBAMOL 750 MG TABLET PO (20:32)
[2017-10-27 07:48] LABS: BILIRUBIN,URINE NEGATIVE (NEG); CLARITY,URINE CLEAR; COLOR,URINE YELLOW; GLUCOSE,URINE NEGATIVE (NEG); NITRITE,URINE NEGATIVE (NEG); PH,URINE 6.5; PROTEIN,URINE NEGATIVE (NEG-TRACE); UROBILINOGEN,URINE 0.2 mg/dL (0.2 mg/dL)
[2017-10-27 08:09] LABS: BACTERIA,URINE 0 /HPF (0-FEW); RBC,URINE 0 /HPF (0-2); SQUAMOUS EPITHELIAL CELL,UR FEW /LPF; WBC,URINE OCC /HPF (0-4)
[2017-10-27] MEDS: METHOCARBAMOL 750 MG TABLET PO ×3 (09:24→21:44)
[2017-10-27] MEDS: FLUoxetine HCL 20 MG CAPSULE PO (09:24)
[2017-10-27] MEDS: DOCUSATE SODIUM 100 MG CAPSULE. PO ×2 (09:24→21:44)
[2017-10-27] MEDS: FERROUS SULFATE 325 MG TABLET. PO ×2 (09:24→21:44)
[2017-10-27] MEDS: MULTIVITAMIN with MINERAL TABLET. PO (09:24)
[2017-10-27] MEDS: CARVEDILOL 6.25 MG TABLET. PO ×2 (09:25→17:50)
[2017-10-27] MEDS: amLODIPine BESYLATE 5 MG TABLET PO (09:25)
[2017-10-27] MEDS: CELECOXIB 200 MG CAPSULE. PO ×2 (09:26→21:44)
[2017-10-27] MEDS: HYDROcodone/APAP 10/325 1 TAB TABLET PO ×2 (09:29→21:45)
[2017-10-27] MEDS: WARFARIN 2 MG TABLET. PO (16:00)
[2017-10-27] MEDS: ZONISAMIDE 100 MG CAPSULE. PO (21:45)
[2017-10-27] MEDS: FAMOTIDINE 20 MG TABLET. PO (21:48)
[2017-10-28] MEDS: IV RINGERS,LACTATED 1000ML 1,000 ML IV (07:24)
[2017-10-28] MEDS ORDERED: ONDANSETRON PF 4 MG/2 ML VIAL. IV (07:30)
[2017-10-28] MEDS ORDERED: MORPHINE SULFATE 4 MG/ML DISP.SYRIN. IV ×3 (07:30→18:00)
[2017-10-28] MEDS ORDERED: LIDOCAINE 1% PF 2 ML VIAL. ID (07:30)
[2017-10-28] MEDS ORDERED: PROCHLORPERAZINE 10 MG/2 ML VIAL. IV ×2 (07:30→18:00)
[2017-10-28] MEDS: CARVEDILOL 6.25 MG TABLET. PO ×2 (08:09→17:00)
[2017-10-28] MEDS: FERROUS SULFATE 325 MG TABLET. PO ×2 (08:11→20:51)
[2017-10-28] MEDS: CELECOXIB 200 MG CAPSULE. PO ×2 (08:11→20:51)
[2017-10-28] MEDS: DOCUSATE SODIUM 100 MG CAPSULE. PO ×2 (08:11→20:51)
[2017-10-28] MEDS: amLODIPine BESYLATE 5 MG TABLET PO (08:11)
[2017-10-28] MEDS: MULTIVITAMIN with MINERAL TABLET. PO (08:12)
[2017-10-28] MEDS ORDERED: LIDOCAINE 2% PF Vial for OR 5 ML VIAL. (09:56)
[2017-10-28] MEDS ORDERED: PROPOFOL 20 ML IV (09:56)
[2017-10-28] MEDS ORDERED: DEXAMETHASONE SOD PHOS 20 MG/5 ML VIAL. (10:01)
[2017-10-28] MEDS ORDERED: ROCURONIUM 50 MG/5 ML VIAL. (10:01)
[2017-10-28] MEDS ORDERED: fentaNYL PF VIAL 100 MCG/2 ML VIAL ×2 (10:57→14:32)
[2017-10-28] MEDS ORDERED: GLYCOPYRROLATE 1 MG/5 ML VIAL. (11:25)
[2017-10-28] MEDS: MORPHINE SULFATE 5 MG, KETOROLAC 30 MG, ROPIVacaine 0.5% PF 60 ML, EPINEPHrine 0.5 MG i... INT ART (11:36)
[2017-10-28] MEDS: TRANEXAMIC ACID 1,000 MG in IV NORMAL SALINE 50ML 50 ML INJ ×2 (11:45→13:15)
[2017-10-28] MEDS ORDERED: NEOSTIGMINE 10 MG/10 ML VIAL. (12:31)
[2017-10-28] MEDS ORDERED: ONDANSETRON PF 4 MG/2 ML VIAL. (12:31)
[2017-10-28] MEDS ORDERED: SEVOFLURANE > 120 MINUTES. IH (13:02)
[2017-10-28] MEDS: fentaNYL PF VIAL 100 MCG/2 ML VIAL IV ×6 (14:36→22:34)
[2017-10-28] MEDS ORDERED: WARFARIN 7.5 MG TABLET. PO (16:00)
[2017-10-28 16:31] LABS: ADD MAN DIFF? YES; BASO % 0 % (0-3); EOS % 0 % (0-3); HEMATOCRIT 32.6 % (36.0-47.0); HEMOGLOBIN 10.7 g/dL (12.0-15.5); LYMPH # 0.5 x10^3/uL (1.0-4.8); LYMPH % 4 % (24-48); MEAN CORPUSCULAR HEMOGLOBIN 28 pg (25-35); MEAN CORPUSCULAR HGB CONC 33 g/dL (31-37); MEAN CORPUSCULAR VOLUME 85 fL (79-100); MONO # 0.2 x10^3/uL (0.0-1.1); MONO % 2 % (0-9); NEUT # 10.1 x10^3uL (1.8-7.7); NEUT % 93 % (31-73); PLATELET COUNT 172 x10^3/uL (140-400); RED BLOOD COUNT 3.83 x10^6/uL (3.50-5.40); RED CELL DISTRIBUTION WIDTH 16.5 % (11.5-14.5); WHITE BLOOD COUNT 10.8 x10^3/uL (4.0-11.0)
[2017-10-28 16:49] LABS: ANION GAP 12 (6-14); BLOOD UREA NITROGEN 24 mg/dL (7-20); BUN/CREATININE RATIO 22 (6-20); CALCIUM 7.9 mg/dL (8.5-10.1); CARBON DIOXIDE 22 mmol/L (21-32); CHLORIDE 108 mmol/L (98-107); CREATININE 1.1 mg/dL (0.6-1.0); GFR 47.8; GLUCOSE 189 mg/dL (70-99); SODIUM 142 mmol/L (136-145)
[2017-10-28 16:52] LABS: ALBUMIN 2.7 g/dL (3.4-5.0); ALK PHOS 91 U/L (46-116); ALT (SGPT) 20 U/L (14-59); AST (SGOT) 21 U/L (15-37); MAGNESIUM 1.3 mg/dL (1.8-2.4); TOTAL BILIRUBIN 0.3 mg/dL (0.2-1.0); TOTAL PROTEIN 5.5 g/dL (6.4-8.2)
[2017-10-28 16:57] LABS: % BANDS 4 % (0-9); % LYMPHS 4 % (24-48); % MONOS 5 % (0-10); % SEGS 87 % (35-66); OVALOCYTES FEW; PLT ESTIMATE ADEQUATE (ADEQUATE); POIKILOCYTOSIS SLIGHT
[2017-10-28 18:00] LABS: INR 1.2 (0.8-1.1); PROTHROMBIN TIME PATIENT 14.5 SEC (11.7-14.0)
[2017-10-28] MEDS: IV DEXTROSE 5 %-0.45 % NACL 1,000 ML IV (18:00)
[2017-10-28] MEDS ORDERED: ceFAZolin SODIUM 1 GM in IV DEXTROSE 5% 50 ML IV (18:00)
[2017-10-28] MEDS ORDERED: DEXTROSE 50% 25 GM / 50ML DISP.SYRIN. IV (18:00)
[2017-10-28] MEDS ORDERED: HYDROcodone/APAP 7.5/325MG 1 TAB TABLET PO (18:00)
[2017-10-28] MEDS ORDERED: ACETAMINOPHEN 325 MG TABLET. PO (18:00)
[2017-10-28] MEDS ORDERED: traMADol 50 MG TABLET PO (18:00)
[2017-10-28] MEDS ORDERED: CALCIUM CARBONATE 500 MG TAB.CHEW PO (18:00)
[2017-10-28] MEDS ORDERED: 0.9 % SODIUM CHLORIDE 10 ML DISP.SYRIN. IV (18:00)
[2017-10-28] MEDS ORDERED: oxyCODONE/APAP 5/325 1 TAB TABLET PO (18:00)
[2017-10-28] MEDS ORDERED: fentaNYL PF VIAL 100 MCG/2 ML VIAL IV (18:00)
[2017-10-28] MEDS ORDERED: diphenhydrAMINE 50 MG/ML VIAL IV (18:00)
[2017-10-28] MEDS: WARFARIN 3 MG TABLET. PO (19:00)
[2017-10-28] MEDS: KETOROLAC 30 MG, BUPIVACAINE MPF 0.25% 20 ML, EPINEPHrine 0.5 MG in TOTAL VOLUME SYRING... INT ART (19:12)
[2017-10-28] MEDS: ceFAZolin SODIUM IV Push 1 GM VIAL. IVP ×2 (19:12→23:41)
[2017-10-28] MEDS: METHOCARBAMOL 750 MG TABLET PO (20:51)
[2017-10-28] MEDS: FAMOTIDINE 20 MG TABLET. PO (20:51)
[2017-10-28] MEDS: ZONISAMIDE 100 MG CAPSULE. PO (20:52)
[2017-10-28] MEDS ORDERED: CELECOXIB 200 MG CAPSULE. PO (21:00)
[2017-10-29] MEDS: IV DEXTROSE 5 %-0.45 % NACL 1,000 ML IV (04:00)
[2017-10-29] MEDS: fentaNYL PF VIAL 100 MCG/2 ML VIAL IV (04:03)
[2017-10-29] MEDS ORDERED: MAGNESIUM HYDROXIDE 2,400 MG/30 ML ORAL.SUSP. PO (06:00)
[2017-10-29] MEDS: KETOROLAC 30 MG, BUPIVACAINE MPF 0.25% 20 ML, EPINEPHrine 0.5 MG in TOTAL VOLUME SYRING... INT ART (06:00)
[2017-10-29 06:36] LABS: ADD MAN DIFF? NO
[2017-10-29 06:44] LABS: BASO % 0 % (0-3); EOS % 0 % (0-3); HEMOGLOBIN 9.4 g/dL (12.0-15.5); LYMPH # 1.3 x10^3/uL (1.0-4.8); LYMPH % 11 % (24-48); MEAN CORPUSCULAR HEMOGLOBIN 28 pg (25-35); MEAN CORPUSCULAR HGB CONC 33 g/dL (31-37); MEAN CORPUSCULAR VOLUME 85 fL (79-100); MONO % 8 % (0-9); NEUT # 9.7 x10^3uL (1.8-7.7); NEUT % 81 % (31-73); PLATELET COUNT 165 x10^3/uL (140-400); RED CELL DISTRIBUTION WIDTH 16.2 % (11.5-14.5); WHITE BLOOD COUNT 12.1 x10^3/uL (4.0-11.0)
[2017-10-29 06:54] LABS: INR 1.2 (0.8-1.1); PROTHROMBIN TIME PATIENT 14.7 SEC (11.7-14.0)
[2017-10-29 07:01] LABS: ALBUMIN 2.7 g/dL (3.4-5.0); ALK PHOS 86 U/L (46-116); ALT (SGPT) 19 U/L (14-59); ANION GAP 11 (6-14); AST (SGOT) 24 U/L (15-37); BLOOD UREA NITROGEN 30 mg/dL (7-20); BUN/CREATININE RATIO 27 (6-20); CALCIUM 8.1 mg/dL (8.5-10.1); CARBON DIOXIDE 24 mmol/L (21-32); CHLORIDE 106 mmol/L (98-107); CREATININE 1.1 mg/dL (0.6-1.0); GFR 47.8; GLUCOSE 121 mg/dL (70-99); POTASSIUM 4.6 mmol/L (3.5-5.1); SODIUM 141 mmol/L (136-145); TOTAL BILIRUBIN 0.4 mg/dL (0.2-1.0); TOTAL PROTEIN 5.4 g/dL (6.4-8.2)
[2017-10-29] MEDS ORDERED: FERROUS SULFATE 325 MG TABLET. PO (08:00)
[2017-10-29] MEDS: CARVEDILOL 6.25 MG TABLET. PO (08:00)
[2017-10-29] MEDS: CELECOXIB 200 MG CAPSULE. PO ×2 (08:16→20:55)
[2017-10-29] MEDS: SENNOSIDES/DOCUSATE 8.6/50MG TABLET. PO (08:16)
[2017-10-29] MEDS: FLUoxetine HCL 20 MG CAPSULE PO ×2 (08:16→08:33)
[2017-10-29] MEDS: DOCUSATE SODIUM 100 MG CAPSULE. PO ×2 (08:16→20:55)
[2017-10-29] MEDS: MULTIVITAMIN with MINERAL TABLET. PO (08:16)
[2017-10-29] MEDS: FERROUS SULFATE 325 MG TABLET. PO ×2 (08:17→20:54)
[2017-10-29] MEDS: HYDROcodone/APAP 10/325 1 TAB TABLET PO ×3 (08:17→23:20)
[2017-10-29] MEDS: METHOCARBAMOL 750 MG TABLET PO ×2 (08:18→20:54)
[2017-10-29] MEDS: ceFAZolin SODIUM IV Push 1 GM VIAL. IVP (08:18)
[2017-10-29] MEDS: amLODIPine BESYLATE 5 MG TABLET PO (08:19)
[2017-10-29] MEDS: MAGNESIUM OXIDE 400 MG TABLET PO (08:22)
[2017-10-29] MEDS: MAGNESIUM SULFATE 4GM 100 ML IV (08:23)
[2017-10-29] MEDS ORDERED: MULTIVITAMIN with MINERAL TABLET. PO (09:00)
[2017-10-29] MEDS: traMADol 50 MG TABLET PO (14:02)
[2017-10-29] MEDS ORDERED: BISACODYL 10 MG SUPP.RECT. PR (16:00)
[2017-10-29] MEDS: WARFARIN 4 MG TABLET. PO (17:00)
[2017-10-29] MEDS: FAMOTIDINE 20 MG TABLET. PO (20:54)
[2017-10-29] MEDS: ZONISAMIDE 100 MG CAPSULE. PO (20:55)
[2017-10-30 05:08] LABS: HEMATOCRIT 21.8 % (36.0-47.0); HEMOGLOBIN 7.2 g/dL (12.0-15.5); MEAN CORPUSCULAR HGB CONC 33 g/dL (31-37)
[2017-10-30 05:09] LABS: INR 1.5 (0.8-1.1)
[2017-10-30] MEDS: FERROUS SULFATE 325 MG TABLET. PO ×2 (09:14→21:38)
[2017-10-30] MEDS: MAGNESIUM OXIDE 400 MG TABLET PO (09:14)
[2017-10-30] MEDS: MULTIVITAMIN with MINERAL TABLET. PO (09:14)
[2017-10-30] MEDS: DOCUSATE SODIUM 100 MG CAPSULE. PO ×2 (09:14→21:38)
[2017-10-30] MEDS: METHOCARBAMOL 750 MG TABLET PO ×2 (09:14→21:38)
[2017-10-30] MEDS: CELECOXIB 200 MG CAPSULE. PO ×2 (09:15→21:38)
[2017-10-30] MEDS: SENNOSIDES/DOCUSATE 8.6/50MG TABLET. PO (09:15)
[2017-10-30] MEDS: FLUoxetine HCL 20 MG CAPSULE PO (09:15)
[2017-10-30] MEDS: HYDROcodone/APAP 10/325 1 TAB TABLET PO (11:59)
[2017-10-30] MEDS: traMADol 50 MG TABLET PO (14:29)
[2017-10-30] MEDS: MAGNESIUM SULFATE 2GM 50 ML IV (16:16)
[2017-10-30] MEDS: WARFARIN 4 MG TABLET. PO (16:16)
[2017-10-30] MEDS: oxyCODONE/APAP 7.5/325 1 TAB TABLET PO ×2 (17:43→21:39)
[2017-10-30] MEDS ORDERED: ONDANSETRON ODT 4 MG TAB.RAPDIS. PO (19:30)
[2017-10-30] MEDS ORDERED: ONDANSETRON PF 4 MG/2 ML VIAL. IV (19:30)
[2017-10-30] MEDS: ZONISAMIDE 100 MG CAPSULE. PO (21:38)
[2017-10-30] MEDS: FAMOTIDINE 20 MG TABLET. PO (21:38)
[2017-10-30] MEDS: ZOLPIDEM 5 MG TABLET. PO (21:39)
[2017-10-30] MEDS: ACETAMINOPHEN 325 MG TABLET. PO (22:53)
[2017-10-31 05:08] LABS: ADD MAN DIFF? NO
[2017-10-31 05:25] LABS: BASO % 0 % (0-3); EOS # 0.1 x10^3/uL (0.0-0.7); EOS % 2 % (0-3); LYMPH # 1.3 x10^3/uL (1.0-4.8); LYMPH % 20 % (24-48); MEAN CORPUSCULAR HEMOGLOBIN 28 pg (25-35); MEAN CORPUSCULAR HGB CONC 33 g/dL (31-37); MEAN CORPUSCULAR VOLUME 85 fL (79-100); MONO # 0.7 x10^3/uL (0.0-1.1); MONO % 10 % (0-9); NEUT # 4.4 x10^3uL (1.8-7.7); NEUT % 68 % (31-73); PLATELET COUNT 118 x10^3/uL (140-400); RED BLOOD COUNT 2.41 x10^6/uL (3.50-5.40); RED CELL DISTRIBUTION WIDTH 16.3 % (11.5-14.5); WHITE BLOOD COUNT 6.6 x10^3/uL (4.0-11.0)
[2017-10-31 05:30] LABS: INR 1.8 (0.8-1.1); PROTHROMBIN TIME PATIENT 20.1 SEC (11.7-14.0)
[2017-10-31 05:37] LABS: ALBUMIN 2.2 g/dL (3.4-5.0); ALBUMIN/GLOBULIN RATIO 0.8 (1.0-1.7); ALK PHOS 78 U/L (46-116); ALT (SGPT) 9 U/L (14-59); ANION GAP 7 (6-14); AST (SGOT) 18 U/L (15-37); BLOOD UREA NITROGEN 26 mg/dL (7-20); BUN/CREATININE RATIO 26 (6-20); CALCIUM 7.8 mg/dL (8.5-10.1); CARBON DIOXIDE 27 mmol/L (21-32); CHLORIDE 109 mmol/L (98-107); GFR 53.3; GLUCOSE 100 mg/dL (70-99); POTASSIUM 3.8 mmol/L (3.5-5.1); SODIUM 143 mmol/L (136-145); TOTAL BILIRUBIN 0.2 mg/dL (0.2-1.0); TOTAL PROTEIN 4.9 g/dL (6.4-8.2)
[2017-10-31] MEDS: oxyCODONE/APAP 7.5/325 1 TAB TABLET PO ×3 (05:52→21:51)
[2017-10-31 06:44] LABS: HEMATOCRIT 20.6 % (36.0-47.0); HEMOGLOBIN 6.8 g/dL (12.0-15.5)
[2017-10-31] MEDS: CELECOXIB 200 MG CAPSULE. PO ×2 (09:34→21:51)
[2017-10-31] MEDS: MAGNESIUM OXIDE 400 MG TABLET PO (09:35)
[2017-10-31] MEDS: FLUoxetine HCL 20 MG CAPSULE PO (09:35)
[2017-10-31] MEDS: MULTIVITAMIN with MINERAL TABLET. PO (09:35)
[2017-10-31] MEDS: METHOCARBAMOL 750 MG TABLET PO ×2 (09:35→21:51)
[2017-10-31] MEDS: DOCUSATE SODIUM 100 MG CAPSULE. PO ×2 (09:35→21:51)
[2017-10-31] MEDS: FERROUS SULFATE 325 MG TABLET. PO ×2 (09:35→21:51)
[2017-10-31] MEDS: SENNOSIDES/DOCUSATE 8.6/50MG TABLET. PO (09:35)
[2017-10-31] MEDS ORDERED: ACETAMINOPHEN 325 MG TABLET. PO (12:45)
[2017-10-31 12:56] LABS: MAGNESIUM 2.5 mg/dL (1.8-2.4)
[2017-10-31] MEDS: diphenhydrAMINE ORAL ELIXIR 12.5 MG/5 ML ML PO (16:05)
[2017-10-31] MEDS: ACETAMINOPHEN 325 MG TABLET. PO (16:05)
[2017-10-31] MEDS: WARFARIN 3 MG TABLET. PO (16:33)
[2017-10-31 16:50] LABS: IMMEDIATE SPIN CROSSMATCH 1 2
[2017-10-31 20:00] LABS: IMMEDIATE SPIN CROSSMATCH 1
[2017-10-31] MEDS: ZOLPIDEM 5 MG TABLET. PO (21:51)
[2017-10-31] MEDS: FAMOTIDINE 20 MG TABLET. PO (21:52)
[2017-10-31] MEDS: ZONISAMIDE 100 MG CAPSULE. PO (21:52)
[2017-11-01 05:56] LABS: ADD MAN DIFF? NO
[2017-11-01] MEDS: oxyCODONE/APAP 7.5/325 1 TAB TABLET PO (06:34)
[2017-11-01 06:38] LABS: BASO % 0 % (0-3); EOS # 0.2 x10^3/uL (0.0-0.7); EOS % 3 % (0-3); HEMATOCRIT 27.1 % (36.0-47.0); HEMOGLOBIN 9.1 g/dL (12.0-15.5); LYMPH # 1.2 x10^3/uL (1.0-4.8); LYMPH % 18 % (24-48); MEAN CORPUSCULAR HEMOGLOBIN 28 pg (25-35); MEAN CORPUSCULAR HGB CONC 34 g/dL (31-37); MEAN CORPUSCULAR VOLUME 83 fL (79-100); MONO # 0.6 x10^3/uL (0.0-1.1); MONO % 10 % (0-9); NEUT # 4.6 x10^3uL (1.8-7.7); NEUT % 69 % (31-73); PLATELET COUNT 137 x10^3/uL (140-400); RED BLOOD COUNT 3.25 x10^6/uL (3.50-5.40); RED CELL DISTRIBUTION WIDTH 15.7 % (11.5-14.5); WHITE BLOOD COUNT 6.6 x10^3/uL (4.0-11.0)
[2017-11-01 06:54] LABS: INR 2.2 (0.8-1.1); PROTHROMBIN TIME PATIENT 23.2 SEC (11.7-14.0)
[2017-11-01] MEDS: SENNOSIDES/DOCUSATE 8.6/50MG TABLET. PO (09:04)
[2017-11-01] MEDS: MULTIVITAMIN with MINERAL TABLET. PO (09:04)
[2017-11-01] MEDS: FLUoxetine HCL 20 MG CAPSULE PO (09:04)
[2017-11-01] MEDS: FERROUS SULFATE 325 MG TABLET. PO (09:04)
[2017-11-01] MEDS: CELECOXIB 200 MG CAPSULE. PO (09:04)
[2017-11-01] MEDS: DOCUSATE SODIUM 100 MG CAPSULE. PO (09:04)
[2017-11-01] MEDS: MAGNESIUM OXIDE 400 MG TABLET PO (09:04)
[2017-11-01] MEDS: METHOCARBAMOL 750 MG TABLET PO (09:06)
[2017-11-01] MEDS: HYDROcodone/APAP 10/325 1 TAB TABLET PO (11:54)
== END 2017-11-01 12:00 | DRG 467 ==
LOC: 4 NORTH 10-29 18:01 → ER 12:00 → 4 NORTH 13:14 → 1 WEST ICU 10-28 16:30
PROC: 0SRR0JZ Replacement of Right Hip Joint, Femoral Surface with Synthetic Substitute, Open Approach (ICD-10-PCS; principal; 2017-10-28 10:55)
PROC: 0SPR0JZ Removal of Synthetic Substitute from Right Hip Joint, Femoral Surface, Open Approach (ICD-10-PCS; 2017-10-28 10:55)
PROC: 30233N1 Transfusion of Nonautologous Red Blood Cells into Peripheral Vein, Percutaneous Approach (ICD-10-PCS; 2017-10-28 10:55)
DX: M97.01XA Periprosthetic fracture around internal prosthetic right hip joint, initial encounter (principal); E44.0 Moderate protein-calorie malnutrition; G93.89 Other specified disorders of brain; E83.42 Hypomagnesemia; D64.9 Anemia, unspecified; G40.909 Epilepsy, unspecified, not intractable, without status epilepticus; D32.9 Benign neoplasm of meninges, unspecified; M19.90 Unspecified osteoarthritis, unspecified site; D72.829 Elevated white blood cell count, unspecified; F32.9 Major depressive disorder, single episode, unspecified; H91.92 Unspecified hearing loss, left ear; I12.9 Hypertensive chronic kidney disease with stage 1 through stage 4 chronic kidney disease, or unspecified chronic kidney disease; M79.7 Fibromyalgia; G43.909 Migraine, unspecified, not intractable, without status migrainosus; Z96.659 Presence of unspecified artificial knee joint; N18.3 Chronic kidney disease, stage 3 (moderate); Z85.3 Personal history of malignant neoplasm of breast; Z86.011 Personal history of benign neoplasm of the brain; Z90.49 Acquired absence of other specified parts of digestive tract; Z90.710 Acquired absence of both cervix and uterus; Z82.3 Family history of stroke; Z91.81 History of falling; Z83.3 Family history of diabetes mellitus; Z87.81 Personal history of (healed) traumatic fracture; Z68.30 Body mass index [BMI] 30.0-30.9, adult; Z88.6 Allergy status to analgesic agent; Z88.8 Allergy status to other drugs, medicaments and biological substances
CPT/HCPCS: 36415; 70450; 71045; 72170; 73502; 73552; 80053; 81001; 83735; 85007; 85014; 85018; 85025; 85610; 86850; 86900; 86901; 86920; 93005; 97110-GP; 97162-GP; 97166-GO; 97530-GO; 97530-GP; 99285; 99285-25; J0171; J0690; J1100; J1885; J1953; J2270; J2405; J2704; J2710; J2795; J3010; J3475; J3490; J7030; J7120; P9016

== ENCOUNTER 2019-07-28 12:55 | Emergency (ER) | payer MEDICARE, BC ==
[~2019-07-28] VITALS: Ht 152.4 cm; Wt 66.2 kg
[~2019-07-28 12:55] MED LIST changes: -ACET-1574 PO; +ACET-1871 PO; +AMLO5TAB10 PO; -AMLO5TAB2 PO; +AMOX1TAB61 PO; -CALC300T42 PO; +CARV6.2511 PO; -CARV6.252 PO; -FERR-26 PO; +FERR325T14 PO; +FLUO20CA19 PO; -FLUO20CA8 PO; -HYDR-2758 PO; +HYDR-2761 PO; -HYDR-2766 PO; +HYDR-2769 PO; +POLY17PO29 PO; +RANI-376 PO; -RANI150T6 PO; +SENN-82 PO; -SENN1TAB21 PO; +SENN1TAB62 PO; +TRAZ-118 PO; +WARF2TAB96 PO; +[UNRECOGNIZED DRUG - CODE] PO
[2019-07-28 13:30] VITALS: BP 139/66
[2019-07-28] MEDS ORDERED: ACYC800T PO (14:38)
[2019-07-28] MEDS ORDERED: HYDR-3164 PO (14:38)
--- NOTE | 2019-07-28 14:38 | PHYS DOC ---
Past Medical History Past Medical History: Depression, Fibromyalgia, Hypertension, Other Additional Past Medical Histor: brain tumor; meneires disease Past Surgical History: Appendectomy, Cholecystectomy, Hip Replacement, Hysterectomy, Knee Replacement, Tonsillectomy, Other Additional Past Surgical Histo: rotator cuff x3; brain tumor removal 2012; breast tumor; R hip 05/12 Alcohol Use: None Drug Use: None Adult General Chief Complaint Chief Complaint: SKIN PROBLEM [facility] HPI Patient is a 83 year old female who presents with rash and pain around her right eye. She states the pain extends into the right side of her head. The patient states that she started having a headache and head pain the day before Thanksgiving. She states the last 4 days she started having a rash around her eyes. The rash extends up into her scalp. She reports her pain as 6 out of 10 in severity and sharp. Review of Systems Review of Systems Constitutional: Denies fever or chills [] Eyes: Denies change in visual acuity, redness, or eye pain [] HENT: Denies nasal congestion or sore throat [] Respiratory: Denies cough or shortness of breath [] Cardiovascular: No additional information not addressed in HPI [] GI: Denies abdominal pain, nausea, vomiting, bloody stools or diarrhea [] : Denies dysuria or hematuria [] Musculoskeletal: Denies back pain or joint pain [] Integument: Reports painful rash around R eye extending into scalp. Neurologic: Denies headache, focal weakness or sensory changes [] Endocrine: Denies polyuria or polydipsia [] Complete systems were reviewed and found to be within normal limits, except as documented in this note. Allergies Allergies Allergies Coded Allergies Type Severity Reaction Last Updated Verified meperidine Adverse Reaction Intermediate 05/21/17 Yes aspirin Adverse Reaction Mild Nausea and Vomiting 05/21/17 Yes Physical Exam Physical Exam Constitutional: Well developed, well nourished, no acute distress, non-toxic appearance. [] HENT: Normocephalic, atraumatic, bilateral external ears normal, oropharynx moist, no oral exudates, nose normal. [] Eyes: PERRLA, EOMI, conjunctiva normal, no discharge. [] Neck: Normal range of motion, no tenderness, supple, no stridor. [] Skin: vesciular rash around R eye and going into R side of scalp. Back: No tenderness, no CVA tenderness. [] Extremities: No tenderness, no cyanosis, no clubbing, ROM intact, no edema. [] Neurologic: Alert and oriented X 3, normal motor function, normal sensory function, no focal deficits noted. [] Psychologic: Affect normal, judgement normal, mood normal. [] Current Patient Data Vital Signs Vital Signs Date Time Temp Pulse Resp B/P (MAP) Pulse Ox O2 Delivery O2 Flow Rate FiO2 07/28/19 13:30 99.0 80 22 139/66 (90) 93 Room Air 99.0 EKG EKG [] Radiology/Procedures Radiology/Procedures [] Course & Med Decision Making Course & Med Decision Making Pertinent Labs and Imaging studies reviewed. (See chart for details) Appears to have shingles. Will place on antivirals, and give a course of hydrocodone. Dragon Disclaimer Dragon Disclaimer This electronic medical record was generated, in whole or in part, using a voice recognition dictation system. Departure Departure Impression: Primary Impression: Herpes zoster Disposition: HOME, SELF-CARE Condition: STABLE Referrals: UNKNOWN PCP NAME (PCP) Patient Instructions: Shingles Additional Instructions: Thank you for visiting [facility]. We appreciate you trusting us with your care. If any additional problems come up don't hesitate to return to visit us. Please follow up with your primary care provider so they can plan additional care if needed and know about the problem that you had. If symptoms worsen come back to the Emergency Department. Any concerning symptoms that start such as chest pain, shortness of air, weakness or numbness on one side of the body, running high fevers or any other concerning symptoms return to the ER. Please fill your medications at any pharmacy and follow the prescription instructions. Please only take the narcotics for breakthrough pain. Please do not drive on narcotics. Scripts Hydrocodone/Apap 5-325 (NORCO 5-325 TABLET) 1 Each Tablet 0.5 TAB PO PRN Q6HRS PRN for PAIN for 5 Days, #10 TAB 0 Refills Prov: NIMA BAEZ APRN 07/28/19 Acyclovir (ACYCLOVIR) 800 Mg Tablet 1 TAB PO 5XDAY for 7 Days, #35 TAB Prov: NIMA BAEZ APRN 07/28/19 Problem Qualifiers Primary Impression: Herpes zoster Herpes zoster complications: unspecified herpes zoster complication Qualified Codes: B02.8 - Zoster with other complications NIMA BAEZ APRN Jul 28, 2019 14:38
== END 2019-07-28 14:59 | disposition home or self-care (01) ==
LOC: ER 12:55
DX: B02.8 Zoster with other complications (principal); R51 Headache; H57.11 Ocular pain, right eye; I10 Essential (primary) hypertension; Z85.841 Personal history of malignant neoplasm of brain; Z88.1 Allergy status to other antibiotic agents; Z88.6 Allergy status to analgesic agent
CPT/HCPCS: 99283